=== PATIENT | male | born 1975 | race Caucasian/White ===

== ENCOUNTER 2021-04-30 02:35 | Emergency (ER) | payer SELFPAY ==
[2021-04-30 03:04] VITALS: BP 162/95; PULSE 88; TEMP 98.1; BMI 29.0
[2021-04-30] MEDS ORDERED: KETOROLAC TROMETHAMINE 15 MG/ML VIAL IVPUSH ONE (03:55)
[2021-04-30] MEDS ORDERED: SODIUM CHLORIDE 0.9% 500 ML INFUS.BAG IV ONE (03:55)
== END 2021-04-30 04:34 | disposition left against medical advice (07) ==
LOC: JER 02:35
DX: M54.50 Low back pain, unspecified (principal)
CPT/HCPCS: 99281-25

== ENCOUNTER 2021-06-17 13:29 | Emergency (ER) | payer OTHER ==
[2021-06-17 13:38] VITALS: PULSE 76; TEMP 97; BMI 29.8
[2021-06-17] MEDS ORDERED: TAMSULOSIN HCL 0.4 MG CAP PO ONE (14:16)
[2021-06-17] MEDS ORDERED: KETOROLAC TROMETHAMINE 30 MG/1 ML VIAL IM ONE (14:16)
[2021-06-17] MEDS ORDERED: SODIUM CHLORIDE 1,000 ML IV STA (14:22)
[2021-06-17] MEDS ORDERED: TAMSULOSIN HCL 0.4 MG CAP ONE (14:31)
[2021-06-17] MEDS ORDERED: KETOROLAC TROMETHAMINE 30 MG/1 ML VIAL ONE (14:32)
[2021-06-17 15:10] LABS: BASO % 0.8 % (0-2.0); HEMATOCRIT 45.2 % (35.4-49); HEMOGLOBIN 15.6 GM/dL (11.7-16.9); LYMPH % 12.9 % (8-40); MCH 29.5 pg (25.7-33.7); MCHC 34.4 g/dl (32.0-35.9); MEAN CELL VOLUME 85.8 fl (80-96); MEAN PLT VOLUME 8.6 fl (7.5-11.1); MONO % 5.5 % (3.8-10.2); NEUT % 79.8 % (42.8-82.8); PLATELET COUNT 262 10^3/uL (134-434); RBC 5.27 M/mm3 (4.00-5.60); RDW 13.1 % (11.9-15.9); WHITE BLOOD COUNT 10.6 K/mm3 (4.0-10.0)
[2021-06-17 15:37] LABS: ALBUMIN 4.2 g/dl (3.4-5.0); BLOOD UREA NITROGEN 19.8 mg/dL (7-18)
[2021-06-17 15:40] LABS: CREATININE 1.1 mg/dL (0.55-1.3)
[2021-06-17 15:42] LABS: BILIRUBIN,TOTAL 0.4 mg/dL (0.2-1); TOT PROT 8.1 g/dl (6.4-8.2)
[2021-06-17 15:52] LABS: URINE APPEARANCE CLEAR; URINE BILIRUBIN NEGATIVE (NEGATIVE); URINE COLOR YELLOW; URINE GLUCOSE (UA) TRACE (NEGATIVE); URINE KETONE NEGATIVE (NEGATIVE); URINE LEUK ESTERASE NEGATIVE (NEGATIVE); URINE NITRITE NEGATIVE (NEGATIVE); URINE PROTEIN NEGATIVE (NEGATIVE); URINE UROBILINOGEN 0.2 mg/dL (0.2-1.0)
[2021-06-17 16:35] VITALS: BP 132/80
== END 2021-06-17 16:34 | disposition home or self-care (01) ==
LOC: JER 13:29
PROC: 3E0233Z Introduction of Anti-inflammatory into Muscle, Percutaneous Approach (ICD-10-PCS; principal; 2021-06-17)
PROC: 3E0337Z Introduction of Electrolytic and Water Balance Substance into Peripheral Vein, Percutaneous Approach (ICD-10-PCS; 2021-06-17)
DX: N20.0 Calculus of kidney (principal)
CPT/HCPCS: 36415; 74176-TC; 80053; 81003; 85025; 87086; 87491; 87591; 96361; 96372; 99285-25

== ENCOUNTER 2023-11-27 22:13 | Inpatient (IN) | payer OTHER ==
[2023-11-27] MEDS: SODIUM CHLORIDE 1,000 ML IV SCH (22:49)
[2023-11-27 22:52] LABS: EOS % 5.7 % (0-4.5); HEMATOCRIT 47.9 % (35.4-49); HEMOGLOBIN 16.7 GM/dL (11.7-16.9); MCH 29.9 pg (25.7-33.7); MCHC 34.8 g/dl (32.0-35.9); MEAN CELL VOLUME 85.9 fl (80-96); MEAN PLT VOLUME 9.2 fl (7.5-11.1); MONO % 5.9 % (3.8-10.2); NEUT % 63.4 % (42.8-82.8); PLATELET COUNT 256 10^3/uL (134-434); RBC 5.58 M/mm3 (4.00-5.60); WHITE BLOOD COUNT 10.9 K/mm3 (4.0-10.0)
[2023-11-27 22:59] LABS: INR 1.02 (0.83-1.09); PROTHROMBIN TIME (PATIENT) 11.5 SEC (9.7-13.0)
[2023-11-27 23:01] LABS: ACTIVATED PTT 37.7 SECONDS (25.2-36.5)
[2023-11-27 23:12] LABS: POTASSIUM 3.8 mmol/L (3.5-5.1)
[2023-11-27 23:14] LABS: MAGNESIUM 2.4 mg/dL (1.8-2.4)
[2023-11-27 23:15] LABS: ALBUMIN 4.6 g/dl (3.4-5.0); BLOOD UREA NITROGEN 12.6 mg/dL (7-18); CALCIUM 9.9 mg/dL (8.5-10.1)
[2023-11-27 23:19] LABS: BILIRUBIN,TOTAL 0.5 mg/dL (0.2-1); TOT PROT 8.8 g/dl (6.4-8.2)
[2023-11-28] MEDS ORDERED: amLODIPine BESYLATE 10 MG TABLET (FP) ONE (01:28)
[2023-11-28] MEDS: amLODIPine BESYLATE 10 MG TABLET (FP) PO ONE (01:35)
[2023-11-28 01:50] LABS: PH,URINE 7.5 (5.0-8.0); URINE APPEARANCE CLEAR; URINE BILIRUBIN NEGATIVE (NEGATIVE); URINE COLOR YELLOW; URINE GLUCOSE (UA) NEGATIVE (NEGATIVE); URINE KETONE NEGATIVE (NEGATIVE); URINE LEUK ESTERASE NEGATIVE (NEGATIVE); URINE NITRITE NEGATIVE (NEGATIVE); URINE PROTEIN NEGATIVE (NEGATIVE); URINE UROBILINOGEN 0.2 mg/dL (0.2-1.0)
[2023-11-28] MEDS: guaiFENesin 600 MG TABLET.ER (FP) PO ONE (02:29)
[2023-11-28] MEDS: ASPIRIN 325 MG TABLET PO ONE (06:45)
[2023-11-28 07:04] VITALS: RESP 18; BMI 26.0
[2023-11-28 07:54] LABS: MCH 29.6 pg (25.7-33.7); MCHC 34.1 g/dl (32.0-35.9); MEAN CELL VOLUME 86.6 fl (80-96); MEAN PLT VOLUME 9.5 fl (7.5-11.1); PLATELET COUNT 234 10^3/uL (134-434); RBC 5.42 M/mm3 (4.00-5.60); RDW 12.5 % (11.9-15.9); WHITE BLOOD COUNT 9.6 K/mm3 (4.0-10.0)
[2023-11-28 08:23] LABS: POTASSIUM 3.7 mmol/L (3.5-5.1)
[2023-11-28 08:28] LABS: ALBUMIN 4.5 g/dl (3.4-5.0); CALCIUM 9.8 mg/dL (8.5-10.1)
[2023-11-28 08:29] LABS: BLOOD UREA NITROGEN 9.4 mg/dL (7-18)
[2023-11-28 08:31] LABS: CREATININE 0.9 mg/dL (0.55-1.3)
[2023-11-28 08:32] LABS: PHOSPHOROUS 3.2 mg/dL (2.5-4.9)
[2023-11-28 08:33] LABS: BILIRUBIN,TOTAL 0.9 mg/dL (0.2-1); TOT PROT 8.3 g/dl (6.4-8.2)
[2023-11-28] MEDS ORDERED: ASPIRIN COATED 81 MG TABLET.EC PO SCH (10:00)
[2023-11-28] MEDS: LORATADINE 10 MG TABLET PO SCH (10:11)
[2023-11-28] MEDS: FLUTICASONE PROP 0.05% 16 GM NASAL SPRAY NS SCH (10:11)
[2023-11-28] MEDS: ENOXAPARIN NA (PORCINE) 40 MG/0.4 ML DISP.SYRIN SQ SCH (10:11)
[2023-11-28] MEDS: amLODIPine BESYLATE 10 MG TABLET (FP) PO SCH (10:11)
[2023-11-28 13:30] VITALS: TEMP 97.9
[2023-11-28] MEDS: LOSARTAN POTASSIUM 25 MG TABLET PO ONE (13:56)
[2023-11-28 15:29] VITALS: BP 135/98; PULSE 108
[2023-11-29] MEDS ORDERED: ASPIRIN 81 MG CHEWABLE TABLETS PO SCH (10:00)
[2023-11-29] MEDS ORDERED: ASPIRIN COATED 81 MG TABLET.EC PO SCH (10:00)
== END 2023-11-28 16:10 | disposition home or self-care (01) | DRG 48 ==
LOC: JER 22:13 → JERBED 11-28 03:44 → J4S 11-28 04:38 → OBSVTOIN 11-28 06:39
PROVIDERS: ADMIT Student in an Organized Health Care Education/Training Program; ATTEND Internal Medicine
DX: G51.0 Bell's palsy (principal); I10 Essential (primary) hypertension
CPT/HCPCS: 36415; 70450-TC; 70496-TC; 70498-TC; 70551-TC; 71045-TC-FY; 80053; 80061; 81003; 82550; 83036; 83735; 84100; 84484; 85025; 85027; 85610; 85730; 86618; 86850; 86900; 86901; 87529; 93005; 93010; 93306-TC; 99285-25; G0378

== ENCOUNTER 2024-06-29 08:55 | Inpatient (IN) | payer OTHER ==
[2024-06-29 09:07] VITALS: BMI 27.4
[2024-06-29] MEDS ORDERED: morphine SULFATE 4 MG/ML VIAL ONE (10:05)
[2024-06-29] MEDS: SODIUM CHLORIDE 1,000 ML IV STA (10:25)
[2024-06-29] MEDS: morphine CARPU-JECT 4 MG/1 ML DISP.SYRIN IVPUSH ONE (10:25)
[2024-06-29 10:47] LABS: BASO % 0.3 % (0-2.0); EOS % 0.1 % (0-4.5); HEMATOCRIT 44.6 % (35.4-49); HEMOGLOBIN 15.1 GM/dL (11.7-16.9); LYMPH % 14.6 % (8-40); MCH 29.3 pg (25.7-33.7); MCHC 33.8 g/dl (32.0-35.9); MEAN CELL VOLUME 86.7 fl (80-96); MEAN PLT VOLUME 9.8 fl (7.5-11.1); MONO % 11.2 % (3.8-10.2); NEUT % 73.8 % (42.8-82.8); PLATELET COUNT 257 10^3/uL (134-434); RBC 5.15 M/mm3 (4.00-5.60); RDW 13.1 % (11.9-15.9); WHITE BLOOD COUNT 15.4 K/mm3 (4.0-10.0)
[2024-06-29 10:54] LABS: INR 1.23 (0.83-1.09); PROTHROMBIN TIME (PATIENT) 14.1 SEC (9.7-13.0)
[2024-06-29 10:56] LABS: ACTIVATED PTT 33.7 SECONDS (25.2-36.5)
[2024-06-29 11:10] LABS: POTASSIUM 3.7 mmol/L (3.5-5.1)
[2024-06-29 11:12] LABS: CALCIUM 9.9 mg/dL (8.5-10.1)
[2024-06-29 11:13] LABS: BLOOD UREA NITROGEN 13.1 mg/dL (7-18)
[2024-06-29 11:16] LABS: CREATININE 1.1 mg/dL (0.55-1.3)
[2024-06-29 11:17] LABS: BILIRUBIN,TOTAL 1.5 mg/dL (0.2-1); TOT PROT 7.8 g/dl (6.4-8.2)
[2024-06-29 11:25] LABS: EPI CELLS 8 /uL (0-25.1); HYALINE CASTS 1 /uL (0-3.1); PH,URINE 5.5 (5.0-8.0); URINE APPEARANCE CLEAR; URINE BACTERIA 7 /uL (0-1359); URINE BILIRUBIN NEGATIVE (NEGATIVE); URINE COLOR YELLOW; URINE GLUCOSE (UA) NEGATIVE (NEGATIVE); URINE KETONE 2+ (NEGATIVE); URINE LEUK ESTERASE NEGATIVE (NEGATIVE); URINE NITRITE NEGATIVE (NEGATIVE); URINE PROTEIN TRACE (NEGATIVE); URINE UROBILINOGEN 0.2 mg/dL (0.2-1.0); URINE WBC 13 /uL (0-25.8)
[2024-06-29 11:27] LABS: URINE RBC 20.9 /uL (0-23.9)
[2024-06-29] MEDS ORDERED: PIPERACILLIN/TAZOB 4.5 GM 4.5 GM/100 ML BAG IVPB ONE (13:06)
[2024-06-29] MEDS ORDERED: BUPIVACAINE HCL/PF 0.25% (2.5MG/ML) 10 ML VIAL ONE (13:13)
[2024-06-29] MEDS ORDERED: HEPARIN NA (PORCINE) 5,000 UNITS/ML 1ML VIAL ONE (13:13)
[2024-06-29] MEDS ORDERED: CEFOXITIN SODIUM/DEXTROSE,ISO 2 GM/50 ML BAG ONE (13:13)
[2024-06-29] MEDS: PIPERACILLIN/TAZOB 4.5 GM 4.5 GM in DEXTROSE 5%-WATER 100 ML IVPB ONE (13:19)
[2024-06-29 13:29] LABS: HIV INTERPRETATION NEGATIVE (NEGATIVE)
[2024-06-29] MEDS ORDERED: KETOROLAC TROMETHAMINE 30 MG/1 ML VIAL ONE (14:03)
[2024-06-29] MEDS ORDERED: PROPOFOL 20 ML ONE ×2 (14:03→14:34)
[2024-06-29] MEDS ORDERED: ONDANSETRON 4 MG/2 ML VIAL ONE (14:03)
[2024-06-29] MEDS ORDERED: MIDAZOLAM HCL 2 MG/2 ML SINGLE DOSE VIAL ONE (14:04)
[2024-06-29] MEDS ORDERED: SUCCINYLCHOLINE CHLORIDE 200 MG/10 ML SYRINGE ONE (14:04)
[2024-06-29] MEDS: BUPIVACAINE HCL/PF 0.25% (2.5MG/ML) 10 ML VIAL IJ ONE (14:27)
[2024-06-29] MEDS: SODIUM CHLORIDE 1,000 ML IV SCH (16:15)
[2024-06-29] MEDS: ACETAMINOPHEN 325 MG TABLET (FP) PO SCH (18:54)
[2024-06-30] MEDS: oxyCODONE HCL 5 MG TABLET PO PRN (06:38)
[2024-06-30] MEDS: LACTATED RINGERS SOLUTION 1000 ML INFUS.BAG IV ONE (08:05)
[2024-06-30] MEDS: LACTATED RINGERS SOLUTION 1,000 ML IV SCH (08:05)
[2024-06-30 08:39] LABS: HEMOGLOBIN 13.6 GM/dL (11.7-16.9); MCH 29.6 pg (25.7-33.7); MEAN CELL VOLUME 86.8 fl (80-96); MEAN PLT VOLUME 9.8 fl (7.5-11.1); PLATELET COUNT 190 10^3/uL (134-434); RBC 4.61 M/mm3 (4.00-5.60); WHITE BLOOD COUNT 13.3 K/mm3 (4.0-10.0)
[2024-06-30 08:41] LABS: POTASSIUM 3.9 mmol/L (3.5-5.1)
[2024-06-30 08:49] LABS: BLOOD UREA NITROGEN 16.4 mg/dL (7-18); PHOSPHOROUS 2.4 mg/dL (2.5-4.9)
[2024-06-30 08:52] LABS: CALCIUM 9.1 mg/dL (8.5-10.1); TOT PROT 6.6 g/dl (6.4-8.2)
[2024-06-30 08:53] LABS: MAGNESIUM 2.1 mg/dL (1.8-2.4)
[2024-06-30 08:55] LABS: ALBUMIN 3.1 g/dl (3.4-5.0)
[2024-06-30] MEDS ORDERED: LOSARTAN POTASSIUM 25 MG TABLET PO SCH (10:00)
[2024-06-30] MEDS ORDERED: amLODIPine BESYLATE 10 MG TABLET (FP) PO SCH (10:00)
[2024-06-30] MEDS: LOSARTAN POTASSIUM 25 MG TABLET PO SCH (11:14)
[2024-06-30] MEDS: ONDANSETRON 4 MG/2 ML VIAL IVPUSH ONE (11:14)
[2024-06-30] MEDS: amLODIPine BESYLATE 10 MG TABLET (FP) PO SCH (11:14)
[2024-06-30] MEDS: AMOX TR/POT CLAV 875MG/125MG TABLETS (FP) PO SCH (17:14)
[2024-07-01] MEDS: ACETAMINOPHEN 1000 MG/100 ML BAG IVPB ONE (00:11)
[2024-07-01] MEDS: MELATONIN 5 MG TABLETS PO ONE (01:10)
[2024-07-01] MEDS: PIPERACILLIN/TAZOB 3.375 GM 50 ML IVPB ONE (10:18)
[2024-07-01] MEDS: NAPH,MB-DB/K PH,MBDB POWDER PACKET PO SCH (14:34)
[2024-07-01] MEDS ORDERED: AMOX TR/POT CLAV 500MG/125MG TABLETS (FP) PO SCH (17:30)
[2024-07-01] MEDS ORDERED: PIPERACILLIN/TAZOB 3.375 GM 50 ML IVPB SCH (18:00)
[2024-07-01] MEDS ORDERED: PIPERACILLIN/TAZOB 3.375 GM 3.375 GM in DEXTROSE 5%-WATER - 50 ML IVPB SCH (18:00)
[2024-07-01] MEDS: PIPERACILLIN/TAZOB 4.5 GM 4.5 GM/100 ML BAG IVPB SCH (18:15)
[2024-07-01] MEDS ORDERED: DOCUSATE SODIUM 100 MG CAPSULE (FP) PO SCH (22:00)
[2024-07-01] MEDS: DOCUSATE SODIUM 100 MG CAPSULE (FP) PO ONE (22:08)
[2024-07-01] MEDS: MELATONIN 5 MG TABLETS PO PRN (22:08)
[2024-07-02 12:42] LABS: BASO % 0.3 % (0-2.0); HEMATOCRIT 40.7 % (35.4-49); HEMOGLOBIN 13.5 GM/dL (11.7-16.9); LYMPH % 11.7 % (8-40); MCHC 33.1 g/dl (32.0-35.9); MEAN CELL VOLUME 87.8 fl (80-96); MEAN PLT VOLUME 8.9 fl (7.5-11.1); PLATELET COUNT 287 10^3/uL (134-434); RBC 4.64 M/mm3 (4.00-5.60); RDW 12.9 % (11.9-15.9); WHITE BLOOD COUNT 9.3 K/mm3 (4.0-10.0)
[2024-07-02 13:00] LABS: POTASSIUM 3.6 mmol/L (3.5-5.1)
[2024-07-02 13:01] LABS: BLOOD UREA NITROGEN 19.2 mg/dL (7-18); CALCIUM 9.1 mg/dL (8.5-10.1)
[2024-07-02 13:02] LABS: MAGNESIUM 2.1 mg/dL (1.8-2.4)
[2024-07-02 13:05] LABS: CREATININE 0.9 mg/dL (0.55-1.3); PHOSPHOROUS 3.3 mg/dL (2.5-4.9)
[2024-07-02] MEDS: IBUPROFEN 600 MG TABLET (FP) PO PRN (20:30)
[2024-07-02] MEDS: FAMOTIDINE 20 MG/50 ML IVPB 20 MG/50 ML MG IVPB ONE (23:05)
[2024-07-03 09:12] VITALS: TEMP 98.4
[2024-07-03 09:22] LABS: BASO % 0.7 % (0-2.0); EOS % 6.2 % (0-4.5); HEMATOCRIT 41.3 % (35.4-49); HEMOGLOBIN 14.1 GM/dL (11.7-16.9); LYMPH % 21.8 % (8-40); MCH 29.6 pg (25.7-33.7); MCHC 34.1 g/dl (32.0-35.9); MEAN CELL VOLUME 86.9 fl (80-96); MEAN PLT VOLUME 8.5 fl (7.5-11.1); NEUT % 59.3 % (42.8-82.8); PLATELET COUNT 337 10^3/uL (134-434); RBC 4.76 M/mm3 (4.00-5.60); RDW 13.1 % (11.9-15.9)
[2024-07-03 09:40] LABS: POTASSIUM 3.5 mmol/L (3.5-5.1)
[2024-07-03 09:53] LABS: CALCIUM 9.5 mg/dL (8.5-10.1)
[2024-07-03 09:54] LABS: ALBUMIN 2.9 g/dl (3.4-5.0); BLOOD UREA NITROGEN 14.2 mg/dL (7-18)
[2024-07-03 09:57] LABS: BILIRUBIN,TOTAL 0.6 mg/dL (0.2-1); CREATININE 0.9 mg/dL (0.55-1.3)
[2024-07-03 09:59] LABS: TOT PROT 6.6 g/dl (6.4-8.2)
[2024-07-03 14:21] VITALS: BP 124/88; PULSE 84; RESP 20
== END 2024-07-03 16:10 | disposition home or self-care (01) | DRG 225 ==
LOC: JER 08:55 → JERBED 12:36 → J8W 17:00
PROVIDERS: ADMIT Internal Medicine; ATTEND Student in an Organized Health Care Education/Training Program
PROC: 0W9G40Z Drainage of Peritoneal Cavity with Drainage Device, Percutaneous Endoscopic Approach (ICD-10-PCS; 2024-06-29)
PROC: 3E1M48Z Irrigation of Peritoneal Cavity using Irrigating Substance, Percutaneous Endoscopic Approach (ICD-10-PCS; 2024-06-29)
PROC: 0DTJ4ZZ Resection of Appendix, Percutaneous Endoscopic Approach (ICD-10-PCS; principal; 2024-06-29 13:00)
DX: K35.211 Acute appendicitis with generalized peritonitis, with perforation and abscess (principal); I10 Essential (primary) hypertension
CPT/HCPCS: 0241U-QW; 36415; 71045-TC-FY; 74177-TC; 80048; 80053; 81003; 83690; 83735; 84100; 85025; 85027; 85610; 85730; 86803; 86850; 86900; 86901; 87040; 87070; 87075; 87076; 87086; 87186; 87205; 87389; 88304-TC; 93005; 93010; 94760; 97116-GP; 97161-GP; 99285-25; J0131; J1644